=== PATIENT | female | born 1970 | race Caucasian/White ===

== ENCOUNTER 2017-12-11 19:49 | Emergency (ER) | payer SELFPAY ==
[~2017-12-11] VITALS: Ht 170.2 cm; Wt 61.4 kg
[~2017-12-11 19:49] MED LIST: CIPRO250 M1 PO; FLEXERIL10 MG PO; IBUPROFEN200 M2 PO; NAPROSYN500 M1 PO; NORCO 325 MG-51 TA1 PO; NORCO 325 MG-7.1 TA1 PO; NORCO 325 MG-7.1 TAB PO; PREDNISONE20 MG PO; TYLENOL 500MG500 MG PO; XANAX0.5 MG PO
[2017-12-11] MEDS ORDERED: KLONOPIN 1MG1 MG PO (20:04)
[2017-12-11] MEDS ORDERED: FLOMAX0.4 MG PO (20:05)
[2017-12-11] MEDS ORDERED: LIVER COMPLEX1 EACH PO (20:05)
[2017-12-11] MEDS ORDERED: WOMEN'S DAILY F1 TAB PO (20:05)
[2017-12-11] MEDS ORDERED: ANTIBIOTIC PO (20:06)
[2017-12-11] MEDS ORDERED: GOOD NEIGHBOR200 M1 PO (20:07)
[2017-12-11 20:53] LABS: HEMATOCRIT 42.1 % (37.0-47.0); HEMOGLOBIN 13.7 g/dL (12.5-16.0); MEAN CELL VOLUME 100 fl (78-100); MEAN CORPUSCULAR HEMOGLOBIN 33 pg (27-31); MEAN CORPUSCULAR HGB CONC 33 g/dL (33-37); MEAN PLATELET VOLUME 10.1 fl (7.4-10.4); PLATELET COUNT 233 K/mm3 (130-400); RED BLOOD COUNT 4.22 M/mm3 (4.10-5.30); RED CELL DISTRIBUTION WIDTH 12.6 % (11.5-14.5); WHITE BLOOD COUNT 5.9 K/mm3 (4.8-10.8)
[2017-12-11 21:02] LABS: ALBUMIN 3.8 g/dL (3.5-5.0); BUN/CREATININE RATIO 34.5 (6.0-26.0); CALCIUM 8.9 mg/dL (8.4-10.2); POTASSIUM 3.8 mmol/L (3.6-5.0); TOTAL BILIRUBIN 0.7 mg/dL (0.2-1.3)
[2017-12-11 21:05] LABS: LYMPHOCYTE 26 % (20-51); MONOCYTE 12 % (3-10); NEUTROPHILS 60 % (42-75)
[2017-12-11 21:06] LABS: URINE APPEARANCE CLOUDY; URINE COLOR YELLOW
[2017-12-11 21:10] LABS: PH-URINE 6.5 (5.0 - 8.0); URINE BILIRUBIN NEGATIVE (NEGATIVE); URINE BLOOD 250 ery/uL (NEGATIVE); URINE GLUCOSE NEGATIVE (NEGATIVE); URINE KETONE NEGATIVE (NEGATIVE); URINE LEUKOCYTE ESTERASE NEGATIVE (NEGATIVE); URINE NITRATE NEGATIVE (NEGATIVE); URINE PROTEIN(semi-quant) NEGATIVE (NEGATIVE); URINE UROBILINOGEN NORMAL (NORMAL); URINE WBC 0-1 /hpf (0-3)
[2017-12-11] MEDS ORDERED: CIPRO500 M1 PO (22:20)
[2017-12-11] MEDS ORDERED: OXYCODONE PO (22:20)
[2017-12-11] MEDS ORDERED: FLAGYL500 M1 PO (22:20)
[2017-12-11 23:06] VITALS: BP 117/83
== END 2017-12-11 23:06 | disposition home or self-care (01) ==
LOC: ED 19:49
PROVIDERS: Nurse Practitioner
DX: K57.92 Diverticulitis of intestine, part unspecified, without perforation or abscess without bleeding (principal); F17.200 Nicotine dependence, unspecified, uncomplicated; Z88.8 Allergy status to other drugs, medicaments and biological substances; Z90.49 Acquired absence of other specified parts of digestive tract
CPT/HCPCS: J2405; J3010; J7030; Q9967

== ENCOUNTER 2017-12-16 15:30 | Emergency (ER) | payer SELFPAY ==
[~2017-12-16] VITALS: Ht 170.2 cm; Wt 61.4 kg
[~2017-12-16 15:30] MED LIST changes: +ANTIBIOTIC PO; +CIPRO500 M1 PO; +FLAGYL500 M1 PO; +FLOMAX0.4 MG PO; +GOOD NEIGHBOR200 M1 PO; +KLONOPIN 1MG1 MG PO; +LIVER COMPLEX1 EACH PO; +OXYCODONE PO; +WOMEN'S DAILY F1 TAB PO
[2017-12-16] MEDS ORDERED: ZOFRAN ODT4 MG PO (16:32)
[2017-12-16] MEDS ORDERED: CYCLOBENZAPRINE10 M1 PO (16:32)
[2017-12-16] MEDS ORDERED: ACETAMINOPHEN-H1 TA2 PO (16:32)
[2017-12-16 16:50] VITALS: BP 116/82
== END 2017-12-16 16:50 | disposition home or self-care (01) ==
LOC: ED 15:30
DX: M54.5 Low back pain (principal); M62.830 Muscle spasm of back; G89.29 Other chronic pain; R11.0 Nausea

== ENCOUNTER 2018-02-11 16:57 | Emergency (ER) | payer SELFPAY ==
[~2018-02-11 16:57] MED LIST changes: +ACETAMINOPHEN-H1 TA2 PO; +CYCLOBENZAPRINE10 M1 PO; +ZOFRAN ODT4 MG PO
[2018-02-11 18:01] LABS: BASO # 0.1 (0.02-0.10); EOS # 0.2 (0.04-0.40); EOS % 3.7 % (1.0-5.0); MEAN CELL VOLUME 100 fl (78-100); MEAN CORPUSCULAR HEMOGLOBIN 34 pg (27-31); MEAN CORPUSCULAR HGB CONC 34 g/dL (33-37); MEAN PLATELET VOLUME 10.8 fl (7.4-10.4); MONO # 0.5 (0.20-0.80); NEU # 3.2 (1.40-6.50); PLATELET COUNT 215 K/mm3 (130-400); RED BLOOD COUNT 4.09 M/mm3 (4.10-5.30); RED CELL DISTRIBUTION WIDTH 12.2 % (11.5-14.5); WHITE BLOOD COUNT 5.9 K/mm3 (4.8-10.8)
[2018-02-11 18:09] LABS: ALBUMIN 3.3 g/dL (3.5-5.0); BUN/CREATININE RATIO 28.9 (6.0-26.0); CALCIUM 8.5 mg/dL (8.4-10.2); TOTAL BILIRUBIN 0.2 mg/dL (0.2-1.3); TOTAL PROTEIN 6.3 g/dL (6.3-8.2)
[2018-02-11 18:32] LABS: URINE COLOR YELLOW
[2018-02-11 18:33] LABS: PH-URINE 5.5 (5.0 - 8.0); URINE APPEARANCE BLOODY; URINE BILIRUBIN NEGATIVE (NEGATIVE); URINE BLOOD 250 ery/uL (NEGATIVE); URINE GLUCOSE NEGATIVE (NEGATIVE); URINE KETONE NEGATIVE (NEGATIVE); URINE LEUKOCYTE ESTERASE TRACE (NEGATIVE); URINE NITRATE NEGATIVE (NEGATIVE); URINE PROTEIN(semi-quant) TRACE mg/dL (NEGATIVE); URINE UROBILINOGEN NORMAL (NORMAL)
[2018-02-11] MEDS ORDERED: NORCO 325 MG-51 TA1 PO (18:53)
[2018-02-11] MEDS ORDERED: ZOFRAN ODT4 MG PO (18:53)
[2018-02-11 19:23] VITALS: BP 131/93
== END 2018-02-11 19:26 | disposition home or self-care (01) ==
LOC: ED 16:57
PROVIDERS: Nurse Practitioner Primary Care
DX: A08.4 Viral intestinal infection, unspecified (principal); Z87.442 Personal history of urinary calculi; F15.11 Other stimulant abuse, in remission; Z87.19 Personal history of other diseases of the digestive system; Z86.19 Personal history of other infectious and parasitic diseases; Z90.710 Acquired absence of both cervix and uterus; F17.200 Nicotine dependence, unspecified, uncomplicated; Z88.8 Allergy status to other drugs, medicaments and biological substances
CPT/HCPCS: J2270; J2405; Q9967

== ENCOUNTER 2018-03-05 12:46 | Emergency (ER) | payer SELFPAY ==
[~2018-03-05] VITALS: Ht 170.2 cm; Wt 65.9 kg
[2018-03-05 13:58] LABS: URINE APPEARANCE BLOODY; URINE COLOR PINK YELLOW
[2018-03-05 13:59] LABS: PH-URINE 5.5 (5.0 - 8.0); URINE BILIRUBIN NEGATIVE (NEGATIVE); URINE BLOOD 250 ery/uL (NEGATIVE); URINE GLUCOSE NEGATIVE (NEGATIVE); URINE KETONE NEGATIVE (NEGATIVE); URINE LEUKOCYTE ESTERASE 2+ (NEGATIVE); URINE NITRATE NEGATIVE (NEGATIVE); URINE PROTEIN(semi-quant) TRACE mg/dL (NEGATIVE); URINE UROBILINOGEN NORMAL (NORMAL)
[2018-03-05 14:01] LABS: BASO # 0.1 (0.02-0.10); EOS # 0.3 (0.04-0.40); EOS % 6.3 % (1.0-5.0); HEMOGLOBIN 14.6 g/dL (12.5-16.0); LYMPH# 1.6 (1.50-4.00); MEAN CELL VOLUME 101 fl (78-100); MEAN CORPUSCULAR HEMOGLOBIN 34 pg (27-31); MEAN CORPUSCULAR HGB CONC 34 g/dL (33-37); MEAN PLATELET VOLUME 10.5 fl (7.4-10.4); MONO # 0.5 (0.20-0.80); NEU # 2.6 (1.40-6.50); PLATELET COUNT 189 K/mm3 (130-400); RED BLOOD COUNT 4.27 M/mm3 (4.10-5.30); WHITE BLOOD COUNT 5.1 K/mm3 (4.8-10.8)
[2018-03-05 14:11] LABS: ALBUMIN 3.5 g/dL (3.5-5.0); BUN/CREATININE RATIO 29.8 (6.0-26.0); CALCIUM 9.1 mg/dL (8.4-10.2); POTASSIUM 4.3 mmol/L (3.6-5.0); TOTAL BILIRUBIN 0.2 mg/dL (0.2-1.3); TOTAL PROTEIN 6.7 g/dL (6.3-8.2)
[2018-03-05] MEDS ORDERED: PYRIDIUM200 M2 PO (16:10)
[2018-03-05] MEDS ORDERED: MACROBID 100 M100 MG PO (16:10)
[2018-03-05 16:28] VITALS: BP 108/73
== END 2018-03-05 16:28 | disposition home or self-care (01) ==
LOC: ED 12:46
PROVIDERS: Physician Assistant
DX: D72.829 Elevated white blood cell count, unspecified (principal); M54.5 Low back pain; K59.00 Constipation, unspecified; G44.309 Post-traumatic headache, unspecified, not intractable; Z87.442 Personal history of urinary calculi; N39.0 Urinary tract infection, site not specified; F17.210 Nicotine dependence, cigarettes, uncomplicated; Z88.8 Allergy status to other drugs, medicaments and biological substances; S00.11XA Contusion of right eyelid and periocular area, initial encounter; S00.33XA Contusion of nose, initial encounter; W01.0XXA Fall on same level from slipping, tripping and stumbling without subsequent striking against object, initial encounter; R78.89 Finding of other specified substances, not normally found in blood; Z87.820 Personal history of traumatic brain injury
CPT/HCPCS: J0696